=== PATIENT | male | born 2000 | race Caucasian/White ===

== ENCOUNTER 2019-02-28 15:40 | Emergency (ER) | payer BC ==
--- NOTE | 2019-02-28 16:13 | EDM.PDOC ---
ED HPI GENERAL MEDICAL PROBLEM - General Chief Complaint: General Stated Complaint: SORE THROAT, VOMITTING Time Seen by Provider: 02/28/19 16:13 Source of Information: Reports: Patient - History of Present Illness INITIAL COMMENTS - FREE TEXT/NARRATIVE: HISTORY AND PHYSICAL: History of present illness: [A shunt presents with sore throat increasing in severity over the last week no fever chills sweats he has vomited a couple of times also complains of nasal discharge] no muffled voice drooling or trismus Review of systems: As per history of present illness and below otherwise all systems reviewed and negative. Past medical history: As per history of present illness and as reviewed below otherwise noncontributory. Surgical history: As per history of present illness and as reviewed below otherwise noncontributory. Social history: No reported history of drug or alcohol abuse. Family history: As per history of present illness and as reviewed below otherwise noncontributory. Physical exam: HEENT: Atraumatic, normocephalic, pupils reactive, negative for conjunctival pallor or scleral icterus, mucous membranes moist, throat clear, neck supple, nontender, trachea midline. Uttered erythema white patchy exudate Lungs: Clear to auscultation, breath sounds equal bilaterally, chest nontender. Heart: S1S2, regular, negative for clicks, rubs, or JVD. Abdomen: Soft, nondistended, nontender. Negative for masses or hepatosplenomegaly. Negative for costovertebral tenderness. Pelvis: Stable nontender. Genitourinary: Deferred. Rectal: Deferred. Extremities: Atraumatic, negative for cords or calf pain. Neurovascular unremarkable. Neuro: Awake, alert, oriented. Cranial nerves II through XII unremarkable. Cerebellum unremarkable. Motor and sensory unremarkable throughout. Exam nonfocal. Diagnostics: [] Therapeutics: [zpak ] Impression: pharyngitis/tonsillitis] Definitive disposition and diagnosis as appropriate pending reevaluation and review of above. throat Pain Score (Numeric/FACES): 3 - Related Data Allergies Allergy/AdvReac Type Severity Reaction Status Date / Time Penicillins Allergy Other Verified 02/28/19 16:00 Home Meds: Home Meds Escitalopram [Lexapro] 20 mg PO DAILY 02/28/19 [History] Past Medical History - Past Health History Medical/Surgical History: Denies Medical/Surgical History - Past Surgical History HEENT Surgical History: Reports: Adenoidectomy Social & Family History - Family History Family Medical History: Noncontributory - Tobacco Use Smoking Status *Q: Former Smoker Used Tobacco, but Quit: Yes Month/Year Tobacco Last Used: 2017 - Recreational Drug Use Recreational Drug Use: No ED ROS GENERAL - Review of Systems Review Of Systems: See Below ED EXAM, GENERAL - Physical Exam Exam: See Below Course - Vital Signs Last Recorded V/S: Last Vital Signs Temp 98.1 F 02/28/19 15:57 Pulse 78 02/28/19 15:57 Resp 18 02/28/19 15:57 BP 128/57 L 02/28/19 15:57 Pulse Ox 96 02/28/19 15:57 Departure - Departure Time of Disposition: 16:15 Disposition: Home, Self-Care 01 Condition: Good Clinical Impression: Pharyngitis, Tonsillitis - Discharge Information Referrals: PCP,None [Primary Care Provider] - Forms: ED Department Discharge Additional Instructions: The following information is given to patients seen in the emergency department who are being discharged to home. This information is to outline your options for follow-up care. We provide all patients seen in our emergency department with a follow-up referral. The need for follow-up, as well as the timing and circumstances, are variable depending upon the specifics of your emergency department visit. If you don't have a primary care physician on staff, we will provide you with a referral. We always advise you to contact your personal physician following an emergency department visit to inform them of the circumstance of the visit and for follow-up with them and/or the need for any referrals to a consulting specialist. The emergency department will also refer you to a specialist when appropriate. This referral assures that you have the opportunity for follow-up care with a specialist. All of these measure are taken in an effort to provide you with optimal care, which includes your follow-up. Under all circumstances we always encourage you to contact your private physician who remains a resource for coordinating your care. When calling for follow-up care, please make the office aware that this follow-up is from your recent emergency room visit. If for any reason you are refused follow-up, please contact the [facility] emergency department at and asked to speak to the emergency department charge nurse.
== END 2019-02-28 16:44 | disposition home or self-care (01) ==
LOC: MW.ED 15:40
DX: J02.9 Acute pharyngitis, unspecified (principal); Z88.0 Allergy status to penicillin; Z87.891 Personal history of nicotine dependence
CPT/HCPCS: 99282

== ENCOUNTER 2019-07-08 22:57 | Emergency (ER) | payer BC ==
--- NOTE | 2019-07-09 00:06 | EDM.PDOCBH ---
ED HPI GENERAL MEDICAL PROBLEM - General Chief Complaint: Behavioral/Psych Stated Complaint: MENTAL HEALTH CHECK Time Seen by Provider: 07/08/19 23:05 Source of Information: Reports: Patient, EMS, Family - History of Present Illness INITIAL COMMENTS - FREE TEXT/NARRATIVE: The patient is a 19-year-old male with an unspecified psychiatric disorder who presents to the ER for suicidal threat. History was obtained via the police, grandmother, the patient's father, and a little bit from the patient himself as he will not say much. The patient and his fiance were at home arguing and everything started escalating and they started screaming at each other and at some point the patient made threats to shoot himself in the head with a gun. Somehow, the police were contacted by the fimilena's mother who was not present at the house and it is unknown who contacted her. She told the police that there was a domestic situation and they went to the house where they assessed the situation, and were told there were guns in the house but they did not actually look for the guns. They talked with the patient's father who at the time stated he would watch the patient and make sure that he got help. The patient states that he has been off of his medications for a week and he can tell he is getting more agitated and states that he plans on getting his medications refilled tomorrow and now states that he will not kill himself. After the police left, the patient's grandmother then contacted our emergency department because she was wondering to do because no one was comfortable watching over the patient. The police were recontacted and the patient was brought to the ER. The patient's father states that he has made threats with guns and knives before and is even superficially cut himself but he has never gone to this extreme that he did tonight. The patient admits that there are loaded guns in the house and the patient's father states that there are 5 loaded guns in the basement. Currently, the patient's fimilena is spending rest of the night at another house, and no family member is comfortable taking the patient home and watching over him because they are concerned he might actually try and hurt himself. There are no reports per the family or the patient of any auditory or visual hallucinations, no reports of any homicidal threats or any other complaints. - Related Data Allergies Allergy/AdvReac Type Severity Reaction Status Date / Time Penicillins Allergy Cannot Verified 07/08/19 23:10 Remember Home Meds: Home Meds Escitalopram [Lexapro] 20 mg PO DAILY 02/28/19 [History] Past Medical History - Past Health History Medical/Surgical History: Denies Medical/Surgical History Psychiatric History: Reports: Anxiety, Depression - Past Surgical History HEENT Surgical History: Reports: Adenoidectomy Social & Family History - Family History Family Medical History: Noncontributory - Tobacco Use Smoking Status *Q: Never Smoker Second Hand Smoke Exposure: No - Caffeine Use Caffeine Use: Reports: Coffee, Energy Drinks, Soda - Recreational Drug Use Recreational Drug Use: No ED ROS GENERAL - Review of Systems Review Of Systems: See Below (Suicidal threats that the patient currently denies , no auditory or visual hallucinations, all other Positives and pertinent negatives as per HPI. All other pertinent systems were reviewed and are negative ) ED EXAM, BEHAVIORAL HEALTH - Physical Exam Exam: See Below Text/Narrative:: Constitutional: No acute distress, Non-toxic appearance, guarded. HEENT: Normocephalic, Atraumatic, Pupils equal round reactive to light, EOMI Neck: Normal range of motion, No stridor, trachea midline Respiratory: No respiratory distress, No tachypnea Cardiovascular: Deferred Gastrointestinal: Deferred Genital / Urinary: Deferred Musculoskeletal: All four extremities present and atraumatic Back: FROM Integument: Warm, Dry, Color is ethnicity appropriate, No rash. Neuro: Alert, Awake, x3, cranial nerves grossly intact, normal gait, no focal deficits noted Psych: Not psychotic, appears guarded COURSE, BEHAVIORAL HEALTH COMP - Course Vital Signs: Last Vital Signs Temp 36.4 C 07/09/19 01:25 Pulse 54 L 07/09/19 01:25 Resp 17 07/08/19 23:05 BP 101/50 L 07/09/19 01:25 Pulse Ox 98 07/09/19 01:25 Orders, Labs, Meds: Active Orders 24 hr Category Date Time Status EKG Documentation Completion [RC] STAT Care 07/08/19 23:22 Active Laboratory Tests 07/08/19 07/08/19 07/09/19 Range/Units 23:39 23:39 00:10 WBC 5.24 (4.0-11.0) K/uL RBC 4.79 (4.50-5.90) M/uL Hgb 14.4 (13.0-17.0) g/dL Hct 42.6 (38.0-50.0) % MCV 88.9 (80.0-98.0) fL MCH 30.1 (27.0-32.0) pg MCHC 33.8 (31.0-37.0) g/dL RDW Std Deviation 42.2 (28.0-62.0) fl RDW Coeff of Sarah 13 (11.0-15.0) % Plt Count 168 (150-400) K/uL MPV 9.80 (7.40-12.00) fL Neut % (Auto) 43.8 L (48.0-80.0) % Lymph % (Auto) 39.7 (16.0-40.0) % [place] % (Auto) 13.0 (0.0-15.0) % Eos % (Auto) 3.1 (0.0-7.0) % Baso % (Auto) 0.4 (0.0-1.5) % Neut # (Auto) 2.3 (1.4-5.7) K/uL Lymph # (Auto) 2.1 (0.6-2.4) K/uL [place] # (Auto) 0.7 (0.0-0.8) K/uL Eos # (Auto) 0.2 (0.0-0.7) K/uL Baso # (Auto) 0.0 (0.0-0.1) K/uL Nucleated RBC % 0.0 /100WBC Nucleated RBCs # 0 K/uL Sodium 145 (136-148) mmol/L Potassium 4.3 (3.5-5.1) mmol/L Chloride 108 H (98-107) mmol/L Carbon Dioxide 27.0 (21.0-32.0) mmol/L BUN 11 (7.0-18.0) mg/dL Creatinine 1.0 (0.8-1.3) mg/dL Est Cr Clr Drug Dosing 112.39 mL/min Estimated GFR (MDRD) > 60.0 ml/min Glucose 102 (74-106) mg/dL Calcium 9.3 (8.5-10.1) mg/dL Magnesium 2.0 (1.8-2.4) mg/dL Total Bilirubin 1.5 H (0.2-1.0) mg/dL AST 13 L (15-37) IU/L ALT 23 (14-63) IU/L Alkaline Phosphatase 26 L (46-116) U/L Total Protein 6.7 (6.4-8.2) g/dL Albumin 4.1 (3.4-5.0) g/dL Globulin 2.6 (2.6-4.0) g/dL Albumin/Globulin Ratio 1.6 (0.9-1.6) TSH 3rd Generation 0.82 (0.36-3.74) uIU/mL Urine Color YELLOW Urine Appearance CLEAR Urine pH 6.0 (5.0-8.0) Ur Specific [place] >= 1.030 (1.001-1.035) Urine Protein NEGATIVE (NEGATIVE) mg/dL Urine Glucose (UA) NEGATIVE (NEGATIVE) mg/dL Urine Ketones NEGATIVE (NEGATIVE) mg/dL Urine Occult Blood NEGATIVE (NEGATIVE) Urine Nitrite NEGATIVE (NEGATIVE) Urine Bilirubin NEGATIVE (NEGATIVE) Urine Urobilinogen 0.2 (<2.0) EU/dL Ur Leukocyte Esterase NEGATIVE (NEGATIVE) Salicylates <0.2 (0-20) mg/dL Urine Opiates Screen (NEGATIVE) Ur Oxycodone Screen (NEGATIVE) Urine Methadone Screen (NEGATIVE) Acetaminophen <2.0 ug/mL Ur Barbiturates Screen (NEGATIVE) Ur Phencyclidine Scrn (NEGATIVE) Ur Amphetamine Screen (NEGATIVE) U Methamphetamines Scrn (NEGATIVE) U Benzodiazepines Scrn (NEGATIVE) U Cocaine Metab Screen (NEGATIVE) U Marijuana (THC) Screen (NEGATIVE) Ethyl Alcohol <3 mg/dL 07/09/19 Range/Units 00:10 WBC (4.0-11.0) K/uL RBC (4.50-5.90) M/uL Hgb (13.0-17.0) g/dL Hct (38.0-50.0) % MCV (80.0-98.0) fL MCH (27.0-32.0) pg MCHC (31.0-37.0) g/dL RDW Std Deviation (28.0-62.0) fl RDW Coeff of Sarah (11.0-15.0) % Plt Count (150-400) K/uL MPV (7.40-12.00) fL Neut % (Auto) (48.0-80.0) % Lymph % (Auto) (16.0-40.0) % [place] % (Auto) (0.0-15.0) % Eos % (Auto) (0.0-7.0) % Baso % (Auto) (0.0-1.5) % Neut # (Auto) (1.4-5.7) K/uL Lymph # (Auto) (0.6-2.4) K/uL [place] # (Auto) (0.0-0.8) K/uL Eos # (Auto) (0.0-0.7) K/uL Baso # (Auto) (0.0-0.1) K/uL Nucleated RBC % /100WBC Nucleated RBCs # K/uL Sodium (136-148) mmol/L Potassium (3.5-5.1) mmol/L Chloride (98-107) mmol/L Carbon Dioxide (21.0-32.0) mmol/L BUN (7.0-18.0) mg/dL Creatinine (0.8-1.3) mg/dL Est Cr Clr Drug Dosing mL/min Estimated GFR (MDRD) ml/min Glucose (74-106) mg/dL Calcium (8.5-10.1) mg/dL Magnesium (1.8-2.4) mg/dL Total Bilirubin (0.2-1.0) mg/dL AST (15-37) IU/L ALT (14-63) IU/L Alkaline Phosphatase (46-116) U/L Total Protein (6.4-8.2) g/dL Albumin (3.4-5.0) g/dL Globulin (2.6-4.0) g/dL Albumin/Globulin Ratio (0.9-1.6) TSH 3rd Generation (0.36-3.74) uIU/mL Urine Color Urine Appearance Urine pH (5.0-8.0) Ur Specific [place] (1.001-1.035) Urine Protein (NEGATIVE) mg/dL Urine Glucose (UA) (NEGATIVE) mg/dL Urine Ketones (NEGATIVE) mg/dL Urine Occult Blood (NEGATIVE) Urine Nitrite (NEGATIVE) Urine Bilirubin (NEGATIVE) Urine Urobilinogen (<2.0) EU/dL Ur Leukocyte Esterase (NEGATIVE) Salicylates (0-20) mg/dL Urine Opiates Screen NEGATIVE (NEGATIVE) Ur Oxycodone Screen NEGATIVE (NEGATIVE) Urine Methadone Screen NEGATIVE (NEGATIVE) Acetaminophen ug/mL Ur Barbiturates Screen NEGATIVE (NEGATIVE) Ur Phencyclidine Scrn NEGATIVE (NEGATIVE) Ur Amphetamine Screen NEGATIVE (NEGATIVE) U Methamphetamines Scrn POSITIVE (NEGATIVE) U Benzodiazepines Scrn NEGATIVE (NEGATIVE) U Cocaine Metab Screen NEGATIVE (NEGATIVE) U Marijuana (THC) Screen NEGATIVE (NEGATIVE) Ethyl Alcohol mg/dL Medical Clearance: 07/09/19 00:07 Although the patient denies that he is suicidal at this time, the patient is very guarded in getting a forthright history from him is difficult. Furthermore , there are definitely loaded weapons at the house and 2 family members present are not comfortable watching over him and taking him home. Thus, given the entire clinical scenario, the patient will need to be reevaluated by a psychiatrist. The patient has never been involuntarily committed before. At this time, there is nothing per history or exam to suggest any type of medical reason for the patient's behavior and at this time the patient has been medically cleared for psychiatric evaluation and treatment as appropriate. I spoke with Dr. Juan F Prieto in [facility] and she accepts the patient in transfer. 07/09/19 01:04 Departure - Departure Time of Disposition: 01:03 Disposition: DC/Tfer to Psych Hosp/Unit 65 Condition: Fair Clinical Impression: Threatening suicide - Discharge Information *PRESCRIPTION DRUG MONITORING PROGRAM REVIEWED*: Not Applicable *COPY OF PRESCRIPTION DRUG MONITORING REPORT IN PATIENT ROBERT: Not Applicable Referrals: PCP,Unknown [Primary Care Provider] - Forms: ED Department Discharge Sepsis Event Note - Evaluation Sepsis Screening Result: No Definite Risk - Focused Exam Vital Signs: Vital Signs Temp Pulse Resp BP Pulse Ox 07/09/19 01:25 36.4 C 54 L 101/50 L 98 07/08/19 23:05 36.4 C 57 L 17 135/63 100 Date Exam was Performed: 07/09/19 Time Exam was Performed: 02:04 - My Orders Last 24 Hours: My Active Orders 07/08/19 23:22 EKG Documentation Completion [RC] STAT - Assessment/Plan Last 24 Hours: My Active Orders 07/08/19 23:22 EKG Documentation Completion [RC] STAT
[2019-07-09 00:15] LABS: ACETAMINOPHEN <2.0 ug/mL; BLOOD UREA NITROGEN,BUN 11 mg/dL (7.0-18.0); CHLORIDE,CL 108 mmol/L (98-107); GLUCOSE RANDOM 102 mg/dL (74-106); POTASSIUM,K 4.3 mmol/L (3.5-5.1); SODIUM,NA 145 mmol/L (136-148)
== END 2019-07-09 02:05 ==
LOC: MW.ED 22:57
DX: F32.9 Major depressive disorder, single episode, unspecified (principal); F41.9 Anxiety disorder, unspecified; Z88.0 Allergy status to penicillin; Z79.899 Other long term (current) drug therapy
CPT/HCPCS: 36415; 80053; 80305-QW; 80307; 81003; 83735; 84443; 85025; 93005; 99284; 99285-25

== ENCOUNTER 2020-11-13 14:22 | Emergency (ER) | payer BC ==
--- NOTE | 2020-11-13 15:05 | EDM.PDOC ---
ED HPI GENERAL MEDICAL PROBLEM - General Chief Complaint: ENT Problem Stated Complaint: POSS STREP Time Seen by Provider: 11/13/20 14:24 Source of Information: Reports: Patient History Limitations: Reports: No Limitations - History of Present Illness INITIAL COMMENTS - FREE TEXT/NARRATIVE: HISTORY AND PHYSICAL: History of present illness: Patient is a 20-year-old male who presents to the emergency room with concerns of strep throat and rash. Patient states that everyone in his household has been tested and treated for strep throat. He started to have a sore throat on which has not resolved on its own. This morning he woke up with lesions to the palms of his hands and soles of his feet. He states his youngest child recently had a similar rash. Patient denies any fever, chills, headache, change in vision, syncope or near syncope. Denies any chest pain, back pain, shortness of breath or cough. Denies any abdominal pain, nausea, vomiting, diarrhea, constipation or dysuria. Has not noted any blood in urine or stool. Patient has been eating and drinking appropriately. Review of systems: As per history of present illness and below otherwise all systems reviewed and negative. Past medical history: As per history of present illness and as reviewed below otherwise noncontributory. Surgical history: As per history of present illness and as reviewed below otherwise noncontributory. Social history: See social history for further information Family history: As per history of present illness and as reviewed below otherwise noncontributory. Physical exam: General: Well developed and well nourished 20-year-old male. Alert and orientated x 3. Nontoxic in appearance and in no acute distress. Vital signs are stable and have been reviewed by me. Nursing notes were reviewed. HEENT: Atraumatic, normocephalic, pupils equal and reactive bilaterally, negative for conjunctival pallor or scleral icterus, mucous membranes moist, few pinpoint red lesions noted to tongue and inside of mouth. Ms normal bilaterally, throat erythematous with bilateral exudate (no pillar shifting or fullness). His neck is supple, nontender, trachea midline. No drooling or trismus noted. No meningeal signs. No hot potato voice noted. Lungs: Clear to auscultation bilaterally. No wheezes, rales, or rhonchi. Chest nontender. Normal work of breathing, no accessory muscles used. Heart: S1S2, regular rate and rhythm without overt murmur, gallops, or rubs. No JVD. No peripheral edema Abdomen: Soft, nondistended, nontender. Skin: Flat red lesions noted to the palms of his hands and soles of the feet. Rash nowhere else on the body, remaining skin is intact, warm, dry. No lesions or rashes noted. Hematologic: No petechiae or purpra. Mucosa appropriate color and normal nail bed color and refill. Extremities: Atraumatic, moves all extremities per self without difficulty or deficits, negative for cords or calf pain. Neurovascular unremarkable. Neuro: Awake, alert, oriented. Cranial nerves II through XII unremarkable. Cerebellum unremarkable. Motor and sensory unremarkable throughout. Exam nonfocal. Psychiatric: Mood and affect are appropriate. Normal thought process. Answering questions appropriately. Notes: *This patient was seen and evaluated during the 2019 SARS-CoV-2 novel coronavirus pandemic period. Community viral transmission is ongoing at time of this encounter and the emergency department is operating under pandemic response procedures. Patient's throat does appear erythematous with exudate, family members have been tested and treated. I will treat him for pharyngitis. The rash that is noted on the palms and soles of his feet are consistent with otcn-psde-mfy-mouth disease. He states his youngest child recently had a similar rash, does not appear toxic. I have talked with the patient about today's findings, in addition to providing specific details for plan of care. Reassessment at the time of disposition demonstrates that the patient is in no acute distress. The patient is stable for discharge, counseling was provided and we discussed in great detail signs and symptoms that would prompt them to return to the Emergency Department. Medication, follow up and supportive care measures were reviewed and discussed. Voices understanding and is agreeable to plan of care. Denies any further questions or concerns at this time. Diagnostics: None Therapeutics: None Prescription: Keflex Impression: Pharyngitis Brkq-tyhr-qxn mouth Plan: 1. Take your medication as directed. Good handwashing and contact precautions as we discussed. The rash on your hands/feet appear viral. You can use Benadryl to help with the itching. 2. Warm Salt water gargles (rinse and spit) 3-4 x daily. Please get a new tooth brush after completion of your medication 3. Tylenol and or ibuprofen as needed for pain management. 4. Follow-up with your primary care provider in the next 1-2 days. If your symptoms should worsen, new symptoms develop or any of the signs and symptoms we discussed should arise please return to the emergency room or call 911 (if needed). Definitive disposition and diagnosis as appropriate pending reevaluation and review of above. Throat Pain Score (Numeric/FACES): 2 - Related Data Allergies Allergy/AdvReac Type Severity Reaction Status Date / Time Penicillins Allergy Cannot Verified 11/13/20 14:55 Remember Home Meds: Home Meds cephALEXin [Keflex] 500 mg PO BID 10 Days #20 cap 11/13/20 [Rx] Past Medical History - Past Health History Medical/Surgical History: Denies Medical/Surgical History Psychiatric History: Reports: Anxiety, Depression - Past Surgical History HEENT Surgical History: Reports: Adenoidectomy Social & Family History - Family History Family Medical History: No Pertinent Family History - Caffeine Use Caffeine Use: Reports: Coffee, Energy Drinks, Soda ED ROS ENT - Review of Systems Review Of Systems: Comprehensive ROS is negative, except as noted in HPI. ED EXAM, ENT - Physical Exam Exam: See Below (See dictation) Course - Vital Signs Last Recorded V/S: Last Vital Signs Temp 98 F 11/13/20 14:56 Pulse 71 11/13/20 14:56 Resp 16 11/13/20 14:56 BP 122/43 L 11/13/20 14:56 Pulse Ox 99 11/13/20 14:56 Departure - Departure Time of Disposition: 15:05 Disposition: Home, Self-Care 01 Clinical Impression: Pharyngitis, Hand, foot and mouth disease - Discharge Information Prescriptions: cephALEXin [Keflex] 500 mg PO BID 10 Days #20 cap Instructions: Strep Throat, Adult, [id number] Referrals: Jona Gonzalez MD [Primary Care Provider] - Forms: ED Department Discharge Additional Instructions: The following information is given to patients seen in the emergency department who are being discharged to home. This information is to outline your options for follow-up care. We provide all patients seen in our emergency department with a follow-up referral. The need for follow-up, as well as the timing and circumstances, are variable depending upon the specifics of your emergency department visit. If you don't have a primary care physician on staff, we will provide you with a referral. We always advise you to contact your personal physician following an emergency department visit to inform them of the circumstance of the visit and for follow-up with them and/or the need for any referrals to a consulting specialist. The emergency department will also refer you to a specialist when appropriate. This referral assures that you have the opportunity for follow-up care with a specialist. All of these measure are taken in an effort to provide you with optimal care, which includes your follow-up. Under all circumstances we always encourage you to contact your private physician who remains a resource for coordinating your care. When calling for f ollow-up care, please make the office aware that this follow-up is from your recent emergency room visit. If for any reason you are refused follow-up, please contact the [facility] Emergency Department at and asked to speak to the emergency department charge nurse. [facility] [address] [place] [id number] [place] [address] Thank you for choosing the [facility] emergency department in [place] for your medical needs today. It was a pleasure caring for you. Today you were seen in the emergency department for rash and strep throat. 1. Take your medication as directed. Good handwashing and contact precautions as we discussed. The rash on your hands/feet appear viral. You can use Benadryl to help with the itching. Cool liquids. 2. Warm Salt water gargles (rinse and spit) 3-4 x daily. Please get a new tooth brush after completion of your medication 3. Tylenol and or ibuprofen as needed for pain management. 4. Follow-up with your primary care provider in the next 1-2 days. If your symptoms should worsen, new symptoms develop or any of the signs and symptoms we discussed should arise please return to the emergency room or call 911 (if needed). Sepsis Event Note (ED) - Focused Exam Vital Signs: Vital Signs Temp Pulse Resp BP Pulse Ox 11/13/20 14:56 98 F 71 16 122/43 L 99
== END 2020-11-13 15:29 | disposition home or self-care (01) ==
LOC: MW.ED 14:22
DX: J02.9 Acute pharyngitis, unspecified (principal); B08.4 Enteroviral vesicular stomatitis with exanthem; Z88.0 Allergy status to penicillin
CPT/HCPCS: 99282

== ENCOUNTER 2021-07-28 17:50 | Emergency (ER) | payer BC ==
[2021-07-28 21:03] LABS: CORONAVIRUS COVID-19 NAA NEGATIVE (NEGATIVE); INFLUENZA A NAA NEGATIVE (NEGATIVE); INFLUENZA B NAA NEGATIVE (NEGATIVE)
== END 2021-07-28 22:59 | disposition home or self-care (01) ==
LOC: MW.ED 17:50
DX: B34.9 Viral infection, unspecified (principal); Z20.822 Contact with and (suspected) exposure to COVID-19
CPT/HCPCS: 0240U; 36415; 71045; 86615; 87651; 99283; 99282

== ENCOUNTER 2022-03-14 21:23 | Emergency (ER) | payer BC ==
[2022-03-14] MEDS ORDERED: Mupirocin Oint 22 GM Tube TOP ONE (21:57)
== END 2022-03-14 22:13 | disposition home or self-care (01) ==
LOC: MW.ED 21:23
DX: L73.9 Follicular disorder, unspecified (principal); Z88.0 Allergy status to penicillin
CPT/HCPCS: 99282; A9270